=== PATIENT | female | born 1970 | race Caucasian/White ===

== ENCOUNTER 2022-04-22 11:29 | Emergency (ER) | payer SELFPAY ==
--- NOTE | ~2022-04-22 | CT_ITS ---
EXAMINATION: CT HEAD WITHOUT CONTRAST CLINICAL INFORMATION: Intractable headache. COMPARISON: None TECHNIQUE: Contiguous axial imaging was performed from the skull base to vertex without intravenous administration of contrast. This CT examination was performed using dose optimization techniques as appropriate, variously including the following: *Automated exposure control *Adjustment of mA and/or kV according to patient size (this includes techniques or standardized protocols for targeted exams where dose is matched to indication/reason for exam; i.e. extremities or head) *Use of iterative reconstruction technique DLP: 599 mGy-cm FINDINGS: There is no evidence of acute intracranial hemorrhage or edematous territorial infarction. There is no abnormal attenuation within the brain parenchyma. Loera-white matter differentiation is preserved. The ventricles are normal in size and configuration. No evidence for obstructive hydrocephalus. No abnormal mass effect or midline shift. No extra-axial fluid collections. No acute soft tissue or osseous abnormalities. The mastoid air cells and paranasal sinuses are clear. CT/CT head/brain wo IV con IMPRESSION: No evidence of acute intracranial hemorrhage or edematous territorial infarction.
[2022-04-22 12:31] VITALS: BP 175/89; PULSE 90; RESP 16; TEMP 36.6; O2SAT 97; BMI 31.1
[2022-04-22 15:41] VITALS: BP 175/90; PULSE 84; RESP 16; TEMP 36.6; O2SAT 98
[2022-04-22] MEDS: diazePAM 2 MG TABLET PO (15:58)
--- NOTE | 2022-04-22 16:05 | ED_ITS ---
HPI - Headache General Chief Complaint: Headache Stated Complaint: pain back of head down into neck Time Seen by Provider: 04/22/22 15:14 Source: patient Mode of arrival: ambulatory Limitations: language barrier ( Urdu-speaking medical charge entry specialist utilized) History of Present Illness HPI Narrative: patient presents emergency department for evaluation of a headache with neck pain. Onset 2 days ago. Pain has been constant. Pain is to the left posterior head pain to the lateral is well. Is described as aching/ tightness. It is aggravated by movement of the head and neck, reporting a pulling sensation wo rsening of pain with movement as well as palpation. Denies alleviating factors. States she was seen at [facility] yesterday given a prescription for naproxen and cyclobenzaprine without any relief. Denies any migraine or headache history. Denies dizziness, lightheadedness, photophobia, phonophobia, vision changes, chest pain, palpitations, shortness of breath, difficulty breathing, numbness or tingling of the extremities. Related Data Previous Rx's Medication Instructions Recorded diazepam 2 mg tablet 2 mg PO BEDTIME PRN muscle spasm 04/22/22 #5 tabs Allergies Allergy/AdvReac Type Severity Reaction Status Date / Time No Known Allergies Allergy Verified 04/22/22 12:31 Review of Systems Review of Systems: Constitutional: No weight loss. No fever. No chills. No weakness. No fatigue. ENT: No sore throat. No rhinorrhea. No nasal congestion. No sore throat. No difficulty swallowing. Skin: No rash. No itching. Cardiovascular: No chest pain. No chest pressure. No palpitations. Respiratory: No shortness of breath. No cough. No sputum production. Gastrointestinal: No anorexia. No nausea. No vomiting. No diarrhea. No abdominal pain. Genitourinary: No burning micturition. No urinary frequency. No incontinence. Neurologic: positive headache. No dizziness. No pre-syncope/ syncope. No unilateral weakness. No ataxia. No numbness. No tingling. No change in bowel or bladder control. Musculoskeletal: Positive neck pain. No back pain. No joint pain. No stiffness. Hematologic: No bleeding. No bruising. Lymphatics: No enlarged lymph nodes. Psychiatric:No depression. No anxiety. Endocrine: No polyuria. No polydipsia. Yes all other systems are reviewed and are negative PMFSH Past Medical History Attestation statement: The following information was validated with the patient. Source: old records reviewed Social History Social History Advance Directives: No Advance Directives Information Provided: No Physical Exam Vital Signs: Vital Signs: Last Vital Signs Temp 97.8 F 04/22/22 15:41 Pulse 84 04/22/22 15:41 Resp 16 04/22/22 15:41 BP 175/90 H 04/22/22 15:41 Pulse Ox 98 04/22/22 15:41 O2 Del Method 04/22/22 15:41 BMI result Body Mass Index 31.1 Appearance: Alert.?Oriented to person, place and time. No acute distress.?Normal affect. Eyes: Pupils equal, round and reactive to light.? EOMI. No nystagmus. ENT: Pharynx normal.?? TM normal bilaterally Neck: Normal inspection.? Neck supple.? no midline cervical spine tenderness, step-offs, deformities. Palpable tenderness along the trapezius/ cervical paraspinal muscles.? No meningismus CVS: Heart sounds normal. Normal heart rate and rhythm.? Pulses normal.?? Respiratory: No respiratory distress.? Lung sounds clear to auscultation bilaterally?? Abdomen: Soft and non-tender. ? Skin: Skin warm and dry.? Normal skin color.? Extremities: No lower extremity edema.? Neuro: Moves all extremities spontaneously. Sensation intact bilaterally. CN II- XII intact. No focal neuro deficits. Ambulates with normal steady gait. Course Course Course Narrative: patient is a 51-year-old female with no significant past medical history presenting to emergency department for new onset of intractable headache over the past 2 days. No focal neurological findings. She appears uncomfortable, vital signs are stable. Afebrile. No meningismus. Pain particularly with movement of the head and neck and tenderness along palpation of the muscles, rico pect cervical strain /tension headache to be the most likely cause for her pain. However patient expressing significant concern for possible intracranial abnormality, Given age and new onset of headache will obtain CT of the head to exclude intracranial abnormality. Will trial diazepam orally for headache at this time. Reevaluation(s) Reevaluation #1: CT scan reveals no acute intracranial findings. Patient was improvement in symptoms after receiving Valium. Discussed plan of care for discharge home. Rest, ice /heat, gentle stretching exercises of neck. Advised not to use cyclobenzaprine, she is going to be given a short prescription for diazepam. Advised follow-up with primary care provider. Reviewed worrisome signs and symptoms return back to emergency department for. All questions were answered, patient is discharged home in stable condition. Ambulatory with steady gait. No neurological deficits MDM - Headache Medical Records Attestation: I reviewed the patient's medical records. Imaging Data CT scan - head: Radiologist's impression: CT/CT head/brain wo IV con IMPRESSION: No evidence of acute intracranial hemorrhage or edematous territorial infarction. Discharge Plan Discharge Clinical Impression: Cervical muscle strain, Tension headache Patient Disposition: Home, Self-Care Instructions: Cervical Strain (ED), Acute Headache (ED) Additional Instructions: Be sure to rest, use ice/ heat for 10-15 minute 3-4 times daily, gentle stretching of the neck. Continue to use naproxen as prescribed. Stop the use of cyclobenzaprine as he stated this is not helping. You have been given a prescription for diazepam, this medication may make you drowsy, you should only take this when you will be at home. Follow-up with primary care provider. Return to the emergency department any new or worsening symptoms or concerns. Prescriptions: New diazepam 2 mg tablet 2 mg PO BEDTIME PRN (Reason: muscle spasm) Qty: 5 0RF Interventions: ED Discharge Assessment Last Done: 04/22/22 17:35 Discharge Date/Time: 04/22/22 17:36 Print Language: Urdu
--- NOTE | 2022-04-22 16:14 | PC.NURSE ---
SITE LEAD made aware of patients elevated BP
== END 2022-04-22 17:36 | disposition home or self-care (01) ==
PROVIDERS: Emergency Provider Internal Medicine
DX: G44.209 Tension-type headache, unspecified, not intractable (principal); S16.1XXA Strain of muscle, fascia and tendon at neck level, initial encounter; X58.XXXA Exposure to other specified factors, initial encounter; Y93.9 Activity, unspecified; Y92.9 Unspecified place or not applicable; Y99.9 Unspecified external cause status
CPT/HCPCS: 70450; 99283; 99284

== ENCOUNTER 2022-12-21 08:23 | Outpatient (REF) | payer MEDICAID, SELFPAY ==
--- NOTE | ~2022-12-21 | MM_ITS ---
EXAMINATION: MM SCREENING DIGITAL BREAST TOMOSYNTHESIS, BILATERAL CLINICAL INFORMATION: Screening. Asymptomatic. The lifetime risk of breast cancer based on the Tyrer-Cuzick Model is 6.3%. COMPARISON: Mammography: None available. TECHNIQUE: Digital breast tomosynthesis is performed in both the craniocaudal and mediolateral oblique views along with computer-aided detection (CAD). Synthesized 2D images are generated from the tomosynthesis. FINDINGS: The breasts are heterogeneously dense, which may obscure small masses (ACR BI-RADS breast composition Category c). Within the medial aspect of the right breast, approximately 4 cm from the nipple, there is a grouping of calcifications for which further evaluation with spot magnification views in craniocaudal and mediolateral oblique projections is recommended. There are some bilateral circumscribed densities present for which spot compression views are recommended and if the lesions are persistent then ultrasound could be performed. These likely represent cysts. MM/MM tomosynthesis screening BI IMPRESSION: 1. Indeterminate grouping of calcifications about the medial aspect of the right breast. 2. Multiple bilateral circumscribed densities for further evaluation as described above. ASSESSMENT: BI-RADS 0: Incomplete - Need additional imaging evaluation. RECOMMENDATION: 1. Additional views of the bilateral breasts. 2. Targeted ultrasound if warranted after review of the additional views. 3. Radiology department staff will contact the patient for additional imaging.
== END 2022-12-21 08:24 | disposition home or self-care (01) ==
LOC: HO.MAMMO 08:23
PROVIDERS: PCP Family Medicine; Visit Provider Family Medicine
DX: Z12.31 Encounter for screening mammogram for malignant neoplasm of breast (principal)
CPT/HCPCS: 77063; 77067

== ENCOUNTER → 2022-12-27 21:45 | Outpatient (REF) | payer MEDICAID, SELFPAY | LOC: HO.SL 21:45 | PROVIDERS: PCP Family Medicine; Visit Provider Family Medicine | DX: G47.30 Sleep apnea, unspecified (principal); R06.83 Snoring | CPT/HCPCS: 95810 ==

== ENCOUNTER 2023-01-15 12:42 | Outpatient (REF) | payer MEDICAID, SELFPAY ==
--- NOTE | ~2023-01-15 | MM_ITS ---
EXAMINATION: MM DIAGNOSTIC DIGITAL BREAST TOMOSYNTHESIS, BILATERAL US DIAGNOSTIC ULTRASOUND BREAST, BILATERAL CLINICAL INFORMATION: Recall from new baseline screening for bilateral benign-appearing nodularity and central right breast calcifications. COMPARISON: Mammography: 12/21/2022 (BI-RADS 0, new baseline). TECHNIQUE: Digital breast tomosynthesis is performed. 2D images are generated from the tomosynthesis. The following views are obtained: Magnification right CC, magnification right ML, bilateral spot CC, bilateral spot MLO. Ultrasound of both breasts is performed interrogating from multiple quadrants using grayscale imaging and color Doppler without and with harmonics. FINDINGS: The breasts are heterogeneously dense, which may obscure small masses (ACR BI-RADS breast composition Category c). The additional spot views demonstrate scattered bilateral smooth benign-appearing nodularity suggesting fibrocystic changes. There is no architectural abnormality or significant dominant mass. The magnification views right breast demonstrate loosely grouped calcifications central breast mid depth around 10 in number of unknown chronicity. Ultrasound bilateral breast ultrasound demonstrates scattered similar appearing small simple anechoic cysts. No solid mass or architectural abnormality. Results are discussed with the patient at time of visit, using an glove machine operator. The bilateral fibrocystic changes are benign. Management options for the right breast calcifications were discussed. Patient is in favor of stereotactic sampling. Results and recommendation called to emergency medical technician basic (Leila) for Dr. Kinney on 01/15/2023. MM/MM added views BI IMPRESSION: Right: -Loosely grouped central right breast calcifications, unknown chronicity. -Benign fibrocystic changes, similar to contralateral left side. Left: -Benign fibrocystic changes, similar to contralateral right side. ASSESSMENT: BI-RADS 4: Suspicious (subcategory 4A: Low suspicion for malignancy) RECOMMENDATION: Stereotactic sampling right breast calcifications. This patient's information was entered into a reminder system with a target due date for their next mammogram.
--- NOTE | ~2023-01-15 | US_ITS ---
EXAMINATION: MM DIAGNOSTIC DIGITAL BREAST TOMOSYNTHESIS, BILATERAL US DIAGNOSTIC ULTRASOUND BREAST, BILATERAL CLINICAL INFORMATION: Recall from new baseline screening for bilateral benign-appearing nodularity and central right breast calcifications. COMPARISON: Mammography: 12/21/2022 (BI-RADS 0, new baseline). TECHNIQUE: Digital breast tomosynthesis is performed. 2D images are generated from the tomosynthesis. The following views are obtained: Magnification right CC, magnification right ML, bilateral spot CC, bilateral spot MLO. Ultrasound of both breasts is performed interrogating from multiple quadrants using grayscale imaging and color Doppler without and with harmonics. FINDINGS: The breasts are heterogeneously dense, which may obscure small masses (ACR BI-RADS breast composition Category c). The additional spot views demonstrate scattered bilateral smooth benign-appearing nodularity suggesting fibrocystic changes. There is no architectural abnormality or significant dominant mass. The magnification views right breast demonstrate loosely grouped calcifications central breast mid depth around 10 in number of unknown chronicity. Ultrasound bilateral breast ultrasound demonstrates scattered similar appearing small simple anechoic cysts. No solid mass or architectural abnormality. Results are discussed with the patient at time of visit, using an american history teacher. The bilateral fibrocystic changes are benign. Management options for the right breast calcifications were discussed. Patient is in favor of stereotactic sampling. Results and recommendation called to medical record librarian (Leila) for Dr. Kinney on 01/15/2023. US/US breast LT limited IMPRESSION: Right: -Loosely grouped central right breast calcifications, unknown chronicity. -Benign fibrocystic changes, similar to contralateral left side. Left: -Benign fibrocystic changes, similar to contralateral right side. ASSESSMENT: BI-RADS 4: Suspicious (subcategory 4A: Low suspicion for malignancy) RECOMMENDATION: Stereotactic sampling right breast calcifications. This patient's information was entered into a reminder system with a target due date for their next mammogram.
--- NOTE | ~2023-01-15 | US_ITS ---
EXAMINATION: MM DIAGNOSTIC DIGITAL BREAST TOMOSYNTHESIS, BILATERAL US DIAGNOSTIC ULTRASOUND BREAST, BILATERAL CLINICAL INFORMATION: Recall from new baseline screening for bilateral benign-appearing nodularity and central right breast calcifications. COMPARISON: Mammography: 12/21/2022 (BI-RADS 0, new baseline). TECHNIQUE: Digital breast tomosynthesis is performed. 2D images are generated from the tomosynthesis. The following views are obtained: Magnification right CC, magnification right ML, bilateral spot CC, bilateral spot MLO. Ultrasound of both breasts is performed interrogating from multiple quadrants using grayscale imaging and color Doppler without and with harmonics. FINDINGS: The breasts are heterogeneously dense, which may obscure small masses (ACR BI-RADS breast composition Category c). The additional spot views demonstrate scattered bilateral smooth benign-appearing nodularity suggesting fibrocystic changes. There is no architectural abnormality or significant dominant mass. The magnification views right breast demonstrate loosely grouped calcifications central breast mid depth around 10 in number of unknown chronicity. Ultrasound bilateral breast ultrasound demonstrates scattered similar appearing small simple anechoic cysts. No solid mass or architectural abnormality. Results are discussed with the patient at time of visit, using an media center assistant. The bilateral fibrocystic changes are benign. Management options for the right breast calcifications were discussed. Patient is in favor of stereotactic sampling. Results and recommendation called to medical assistant float (Leila) for Dr. Kinney on 01/15/2023. US/US breast RT limited IMPRESSION: Right: -Loosely grouped central right breast calcifications, unknown chronicity. -Benign fibrocystic changes, similar to contralateral left side. Left: -Benign fibrocystic changes, similar to contralateral right side. ASSESSMENT: BI-RADS 4: Suspicious (subcategory 4A: Low suspicion for malignancy) RECOMMENDATION: Stereotactic sampling right breast calcifications. This patient's information was entered into a reminder system with a target due date for their next mammogram.
== END 2023-01-15 12:43 | disposition home or self-care (01) ==
LOC: HO.MAMMO 12:42
PROVIDERS: PCP Family Medicine; Visit Provider Family Medicine
DX: R92.1 Mammographic calcification found on diagnostic imaging of breast (principal); R92.2 Inconclusive mammogram
CPT/HCPCS: 76642; 77066

== ENCOUNTER 2023-01-19 08:39 | Outpatient (REF) | payer MEDICAID, SELFPAY ==
--- NOTE | ~2023-01-19 | MM_ITS ---
EXAMINATION: STEREOTACTIC TOMOSYNTHESIS-GUIDED VACUUM-ASSISTED BREAST BIOPSY, RIGHT SPECIMEN RADIOGRAPH, RIGHT POST PROCEDURE DIGITAL MAMMOGRAM, RIGHT CLINICAL INFORMATION: Calcifications central right breast, unknown chronicity. COMPARISON: Mammography 01/15/2023, 12/21/2022 (new baseline). TECHNIQUE/PROCEDURE: Informed consent was obtained from the patient after discussion of the benefits, risks, and alternatives to biopsy today. Patient appeared to understand. Gave opportunity for questions. Patient signed consent form. Hospital provided doctor of radiology assisted for the consent and throughout the procedure. BIOPSY TABLE: [employer] Prone Biopsy System. LESION: Loosely grouped punctate calcifications mid central right breast, just medial to midline. LOCAL ANESTHESIA: 10 mL carbonated 1% lidocaine; 10 mL 1% lidocaine with epinephrine. DERMATOTOMY: Single skin magdalena dermatotomy performed. NEEDLE: [employer] 9-gauge vacuum assisted core biopsy device. APPROACH: Medial lateral. TARGETING: Combination of digital breast tomosynthesis and stereotactic digital mammography used for targeting. CORES: 8. CLIP: [employer] T-shaped marker. SPECIMEN RADIOGRAPH: Specimen radiograph is taken in separate room using digital mammography. The index calcifications are in the excised cores. There are at least 5 calcifications in the cores. POST PROCEDURE UNILATERAL DIGITAL MAMMOGRAM: The post biopsy mammogram is performed in separate room using separate digital mammography equipment from the biopsy procedure. CC and ML views are obtained. The breasts are heterogeneously dense, which may obscure small masses (breast composition category: c). The clip marker is in position. The calcifications are markedly decreased at the biopsy site and no longer clearly visualized. No gross hematoma. The patient tolerated the procedure well. No immediate complications. Home instructions reviewed with the patient. Final pathology results are pending. MM/MM stereotactic biopsy RT IMPRESSION: 1. Digital tomosynthesis-guided core biopsy right breast with clip placement. 2. Specimen radiograph taken and post procedure mammogram. There is satisfactory positioning of the biopsy clip. 3. Final pathology results pending. An addendum report will be issued.
[2023-01-19] MEDS: Lidocaine HCl 1 % 20 ML VIAL 9 ML SUBCUT (11:05)
[2023-01-19] MEDS: Sodium Bicarbonate 8.4% 50 MEQ/50 ML VIAL SUBCUT (11:05)
[2023-01-19] MEDS: Lidocaine HCl 1%/Epi 1:100,000 10 ML VIAL SUBCUT (11:07)
== END 2023-01-19 08:40 | disposition home or self-care (01) ==
LOC: HO.MAMMO 08:39
PROVIDERS: PCP Family Medicine; Visit Provider Surgery
DX: R92.0 Mammographic microcalcification found on diagnostic imaging of breast (principal)
CPT/HCPCS: 19081; 88305; 99202; A4648

== ENCOUNTER → 2023-01-26 08:06 | Outpatient (BNVA) | payer MEDICAID, SELFPAY | PROVIDERS: PCP Family Medicine; Visit Provider Surgery | DX: R92.0 Mammographic microcalcification found on diagnostic imaging of breast (principal) | CPT/HCPCS: 99212 ==

== ENCOUNTER 2023-12-27 08:16 | Outpatient (REF) | payer MEDICAID, SELFPAY ==
--- NOTE | ~2023-12-27 | MM_ITS ---
EXAMINATION: MM SCREENING DIGITAL BREAST TOMOSYNTHESIS, BILATERAL CLINICAL INFORMATION: Screening. Asymptomatic. COMPARISON: Mammography: 12/21/2022. 01/15/2023 diagnostic. 01/19/2023 benign stereotactic right breast biopsy. 01/15/2023 bilateral breast ultrasound (simple cysts). TECHNIQUE: Digital breast tomosynthesis is performed in both the craniocaudal and mediolateral oblique views along with computer-aided detection (CAD). Synthesized 2D images are generated from the tomosynthesis. FINDINGS: The breasts are heterogeneously dense, which may obscure small masses (ACR BI-RADS breast composition Category c). Post benign biopsy clip in the approximate 3:00 axis right breast middle one third. Isodense small oval masses in both breasts, known to represent simple cysts on prior ultrasounds. No recurrent or suspicious calcifications present. No developing masses or regions of architectural distortion in either breast. No suspicious skin or axillary abnormality. MM/MM tomosynthesis screening BI IMPRESSION: No mammographic evidence of malignancy. Stable benign findings. ASSESSMENT: BI-RADS BI-RADS 2 - Benign Findings RECOMMENDATION: Routine annual mammography screening. 1 year F/U This examination should not preclude the clinical evaluation of a suspicious palpable abnormality. This patient's information was entered into a reminder system with a target due date for their next mammogram.
== END 2023-12-27 08:17 | disposition home or self-care (01) ==
LOC: HO.MAMMO 08:16
PROVIDERS: PCP Family Medicine; Visit Provider Family Medicine
DX: Z12.31 Encounter for screening mammogram for malignant neoplasm of breast (principal)
CPT/HCPCS: 77063; 77067

== ENCOUNTER → 2023-12-27 08:30 | Outpatient (BNV) | payer MEDICAID, SELFPAY | PROVIDERS: PCP Family Medicine; Visit Provider Radiology Diagnostic Radiology | DX: Z12.31 Encounter for screening mammogram for malignant neoplasm of breast (principal) | CPT/HCPCS: 77063; 77067 ==

== ENCOUNTER 2024-01-30 08:42 | Outpatient (REF) | payer MEDICAID, SELFPAY ==
[2024-01-30 14:12] LABS: MANUAL DIFF FLAG NO
[2024-01-30 14:17] LABS: Basophils Absolute Auto 0.1 X10*3/uL (0.0-0.2); Basophils Percent Auto 0.8 % (0-2); Eosinophils Absolute Auto 0.2 X10*3/uL (0.0-0.4); Eosinophils Percent Auto 2.4 % (0-4); Hematocrit 36.8 % (37.0-47.0); Hemoglobin 11.6 g/dl (12.0-16.0); Imm Gran Abs Auto 0.03 X10*3/uL (0.00-0.03); Imm Gran Pct Auto 0.5 % (0.0-0.4); Lymphocytes Percent Auto 31.1 % (20-40); Mean Corpuscular HGB Conc 31.5 g/dl (31.0-35.0); Mean Corpuscular Volume 88.7 fL (80.0-98.0); Monocytes Absolute Auto 0.7 X10*3/uL (0.1-1.2); Monocytes Percent Auto 10.7 % (2-11); Neutrophils Absolute Auto 3.5 x10*3/uL (2.0-8.3); Neutrophils Percent Auto 54.5 % (45-73); Platelet Count 432 X10*3/uL (160-400); Red Blood Count 4.15 X10*6/uL (4.20-5.50); Red Cell Distribution Width 17.2 % (11.0-16.0); White Blood Count 6.3 X10*3/uL (4.8-10.8)
[2024-01-30 14:31] LABS: Rheumatoid Factor < 13.0 IU/mL (<15.0)
[2024-01-30 14:38] LABS: Alanine Aminotransferase 10 U/L (0-31); Albumin Level 3.9 g/dL (3.5-5.0); Alkaline Phosphatase 95 U/L (39-117); Anion Gap 12 (12-20); Aspartate Amino Transferase 13 U/L (5-31); Bilirubin Total 0.2 mg/dL (0.0-1.0); Blood Urea Nitrogen 11 mg/dL (9-16); Calcium 9.4 mg/dL (8.4-10.2); Carbon Dioxide 28 mmol/L (22-29); Chloride 106 mmol/L (96-108); Cholesterol 240 mg/dL (<200); Estimated Glomerular Filt Rate > 60; Glucose Random 85 mg/dL (60-115); HDL Cholesterol 55 mg/dL (>40); LDL Cholesterol Calculated 162 mg/dL (<100); Magnesium 1.9 mg/dL (1.6-2.6); Potassium 4.1 mmol/L (3.3-5.1); Sodium 142 mmol/L (135-145); Total Protein 7.6 g/dL (6.5-8.0); Triglycerides 115 mg/dL (<150)
[2024-01-30 14:52] LABS: Erythrocyte Sedimentation Rate 36 MM/HR (0-20)
[2024-01-30 14:54] LABS: TSH reflex Free T4 2.44 uIU/mL (0.32-4.0)
[2024-01-30 15:00] LABS: Folate 9.6 ng/mL (> or = 4.0); Vitamin B12 348 pg/mL (200-900)
[2024-02-01 15:28] LABS: Anti Nuclear Antibody Screen NEGATIVE (NEGATIVE)
[2024-02-01 15:48] LABS: Cyclic Citrullinated Peptide <16 UNITS
== END 2024-01-30 08:43 | disposition home or self-care (01) ==
LOC: HO.CHCLDS 08:42
PROVIDERS: Visit Provider Family Medicine
DX: R20.0 Anesthesia of skin (principal); R20.2 Paresthesia of skin; M25.50 Pain in unspecified joint; N93.9 Abnormal uterine and vaginal bleeding, unspecified; R22.1 Localized swelling, mass and lump, neck
CPT/HCPCS: 36415; 80053; 80061; 82607; 82746; 83735; 84443; 85025; 85652; 86038; 86200; 86431

== ENCOUNTER 2024-02-01 12:39 | Outpatient (REF) | payer MEDICAID, SELFPAY ==
--- NOTE | ~2024-02-01 | US_ITS ---
EXAMINATION: US PELVIS CLINICAL INFORMATION: Abnormal uterine bleeding; the last menstrual. Is not provided. COMPARISON: None available. TECHNIQUE: Ultrasound of the pelvis is performed using both transabdominal and transvaginal transducers along with Doppler. Transvaginal imaging is performed due to inadequate visualization transabdominally. FINDINGS: The uterus is of normal size and echogenicity, measuring 9.6 x 4.8 x 5.7 cm. The uterus is anteverted and anteflexed. A regular homogeneous endometrium is identified measuring 0.4 cm. FIBROIDS: There are 2 fibroids seen. 1. Location: Rightward isthmus, myometrial. Size: 4.5 x 3.9 x 4.9 cm. Fibroid characteristics: Heterogeneously hypoechoic. 2. Location: Anterior body, subserosal. Size: 0.9 x 0.7 x 0.8 cm. Fibroid characteristics: Heterogeneous echotexture, with a central calcification. Both ovaries are of normal size and echogenicity. The right ovary measures 2.0 x 0.9 x 2.0 cm for a volume of 2.1 mL. The left ovary measures 2.4 x 1.0 x 2.0 cm for a volume of 2.5 mL. There is no pelvic free fluid. No adnexal mass is seen. US/US pelvic and transvaginal IMPRESSION: There are uterine fibroids, as detailed. The examination is otherwise unremarkable.
== END 2024-02-01 12:40 | disposition home or self-care (01) ==
LOC: HO.US 12:39
PROVIDERS: PCP Family Medicine; Visit Provider Family Medicine
DX: N93.9 Abnormal uterine and vaginal bleeding, unspecified (principal)
CPT/HCPCS: 76830; 76856

== ENCOUNTER 2024-04-09 15:22 | Outpatient (REF) | payer MEDICAID, SELFPAY ==
[2024-04-09 17:46] LABS: Appearance Urine Cloudy; Color Urine Yellow; Glucose Urine UA Negative (Negative); Leukocyte Esterase Urine Small (1+) (Negative); Nitrite Urine Negative (Negative); PH 6.5 (5.0-9.0); UMIC TRIGGER UACC YES; Urine Blood Negative (Negative); Urine Ketones Trace mg/dL (Negative); Urine Protein Trace mg/dL (Neg-Trace)
[2024-04-09 18:02] LABS: Bacteria Urine Trace (None Seen); Calcium Oxalate Crystals Urine Present; Hyaline Casts Urine 0-2 /LPF (0-2); RBC Urine 0-2 /HPF (0-2); UACC Culture Trigger YES; WBC Urine 0-5 /HPF (0-5)
== END 2024-04-09 15:23 | disposition home or self-care (01) ==
LOC: HO.CHCLNP 15:22
PROVIDERS: Visit Provider Family Medicine
DX: R30.0 Dysuria (principal)
CPT/HCPCS: 81001; 87086

== ENCOUNTER 2024-12-08 09:11 | Outpatient (REF) | payer MEDICAID, SELFPAY ==
--- OUTSIDE RECORDS SUMMARY | 2024-12-08 09:55 | XMS_ITS | Encounter Summary ---
Author Organization [employer] Address [address] [place] [address] [address] [place] [address] Care Team Providers Care Real Estate Investment Analyst Name Role Phone Liliana Kinney MD Primary Care Provider [phone] Encounter Details Date Type Department Care Team ([facility] Contact Info) Description 02/15/2023 Orders Only [facility] [address] [place], [place] [phone] ProviderBuck MD Social History Tobacco Use Types Packs/Day Years Used Date Smoking Tobacco: Never Passive Smoke Exposure: Never Smokeless Tobacco: Never Alcohol Use Standard Drinks/Week Comments Never 0 (1 standard drink = 0.6 oz pur e alcohol) Depression Answer Date Recorded Patient Health Questionnaire-9 Score 3 11/10/2022 Depression Answer Date Recorded Patient Health Questionnaire-2 Score 2 11/10/2022 Comments Unknown Sex and Gender Information Value Date Recorded Sex Assigned at Female 11/10/2022 1:04 PM EDT Legal Sex Female 12:06 PM EDT Gender Identity Female 11/10/2022 1:04 PM EDT Sexual Orientation Straight 11/10/2022 1: 04 PM EDT COVID-19 Exposure Response Date Recorded In the last 10 days, have yo u been in contact with someone who was confirmed or suspected to have Coronavirus/COVID-19? No / Unsure 01/16/2023 3:33 PM EDT documented as of this encounter Plan of Treatment Upcoming Encounters Date Type Department Care Team ([facility] Contact Info) Description 12/15/2024 3:15 PM EDT Office Visit [facility] [address] [place] [address] Liliana Kinney MD [address] [place], [place] [phone] documented as of this encounter Procedures Procedure Name Priority Date/Time Associated Diagnosis Comments EXTERNAL BREAST BIOPSY Routine 01/19/2023 documented in this encounter Results * External Breast Biopsy (01/19/2023) Anatomical Region Laterality Modality Breast N/A Mammography Narrative 01/19/2023 Benign stereotactic biopsy of right breast with a 6 month follow up recommendation us Historical Provider MD SEGURA BI PROCEDURES Edited Result - Final documented in this encounter Visit Diagnoses Not on filedocumented in this encounter Additional Health Concerns Assessment Noted Time PHQ-9 Depression Total Score: 3 11/11/19 23 1:39 PM EDT documented as of this encounter Care Teams Real Estate Investment Analyst Relationship Specialty Start Date End Date Liliana Kinney MD [address] [place] [address] PCP - General Family Medicine 11/10/22 documented as of this encounter
--- OUTSIDE RECORDS SUMMARY | 2024-12-08 09:55 | XMS_ITS | Encounter Summary ---
Author Organization [facility] [employer] Address [address] [place] [address] [address] [place] [address] Care Team Providers Care Oil Burner Technician Name Role Phone Liliana Kinney MD Primary Care Provider [phone] Reason for Visit * Reason Comments Chart update mammo Encounter Details Date Type Department Care Team (Late Contact Info) Description 01/15/2023 Abstract [facility] [address], [place] [phone] Liliana Kinney MD [address] [place] [address] Breast screening (Primary Dx) Social History Tobacco Use Types Packs/Day Years [...] Upcoming Encounters Date Type Department Care Team (Late Contact Info) Description 12/15/2024 3:15 PM EDT Office Visit [facility] [address] [place] [address] Liliana Kinney MD [address] [place] [address] documented as of this encounter Visit Diagnoses Diagnosis Breast screening- Primary Breast screening, unspecified documented in this encounter Additional Health Concerns Assessment Noted Time PHQ-9 Depression Total Score: 3 11/11/19 23 1:39 PM EDT documented as of this encounter Care Teams Oil Burner Technician Relationship Specialty Start Date End Date Liliana Kinney MD [address] [place] [id number] PCP - General Family Medicine 11/10/22 documented as of this encounter
--- OUTSIDE RECORDS SUMMARY | 2024-12-08 09:55 | XMS_ITS | Clinical Summary ---
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 1 kit 3 Active omega-3 acid ethyl esters (Lovaza) 1 g capsule Take 1 g by mouth 2 times daily. Active albuterol 108 (90 Base) MCG/ACT inhalerIndication s:Chronic cough Inhale 2 puffs every 4 (four) hours if needed for wheezing. 18 g 1 3 Active cetirizine (ZyrTEC) 10 MG tablet Take 1 tablet (10 mg) by mouth in the morning. 30 tablet 3 Active magnesium 30 MG tablet Take 1 tablet (30 mg) by mouth 2 times daily. 180 tablet 1 4 Active ibuprofen 800 MG tablet 4 Active Ketotifen Fumarate 0.035 % solution Administer 1 drop into affected eye(s) 2 times daily. 10 mL 1 4 Active Flibanserin (Addyi) 100 MG tablet Take 1 tablet (100 mg) by mouth Once per day. 90 tablet 1 4 Active amLODIPine (Norvasc) 10 MG tabletIndications :Primary hypertension Take 1 tablet (10 mg) by mouth in the morning. 90 tablet 1 4 Active rosuvastatin (Crestor) 40 MG tablet Take 1 tablet (40 mg) by mouth Once per day. 90 tablet 1 4 Active Active Problems Problem Noted Date Diagnosed Date Hypoactive sexual desire disorder 07/09/2024 Assessment & Plan (07/09/2024 4:43 PM EST): Prescribing Addyi for Sx, follow up in 6 months. Relevant Medications Flibanserin (Addyi) 100 MG tablet Itchy, watery, and red eye 04/09/2024 Assessment & Plan (04/09/2024 2:36 PM EDT): DC Pataday and begin Ketotifen Fumarate for Sx. Referral to Ophthalmology for further evaluation. Relevant Medications Ketotifen Fumarate 0.035% solution Dysuria 04/09/2024 Assessment & Plan (04/09/2024 2:37 PM EDT): Ordering urinalysis for further evaluation. Prescribing Bactrim for Sx. Relevant Medications Sulfamethoxazole-Trimethoprim (Bactrim DS) 800-160 mg tablet Abnormal uterine bleeding 01/30/2024 Assessment & Plan (01/30/2024 9:47 AM EDT): Ordering US of Pelvis for further investigation of symptoms. Advised treatment options to alleviate symptoms. Reviewed and updated immunization records. Relevant Orders Zoster Vaccine - Recombinant Adjuvanted (Shingrix) 50 MCG / 0.5 ML Mass of right side of neck 01/30/2024 Assessment & Plan (01/30/2024 9:48 AM EDT): Ordering US of the Neck to further investigate symptoms. Neck pain 01/30/2024 Assessment & Plan (01/30/2024 9:45 AM EDT): Prescribing Flexeril for neck spasms. F/u in 6 months. Relevant Medications Cyclobenzaprine (Flexeril) 5 MG Tablet Left foot pain 10/24/2023 Assessment & Plan (10/29/2023 9:10 AM EDT): Ddx plantar fasciitis.Will rx night splints, recommended inserts for plantar fasciitis. Referred to podiatry Chronic cough 04/10/2023 Assessment & Plan (04/10/2023 4:29 PM EDT): Pt concern of asthma, will send for PFTs and provide trial of CARLOS Cramps, muscle, general 04/10/2023 Assessment & Plan (04/10/2023 4:29 PM EDT): Unknown etiology, will monitor Pruritus 04/10/2023 Assessment & Plan (04/10/2023 4:29 PM EDT): Unknown etiology, no rash appreciated. If persistent will send the following labs: CBC, CMP, CRP, ESR, TSH, iron, ferritin, zinc, Vit D, FOBT and CXR. Watery eyes 04/10/2023 Assessment & Plan (04/10/2023 4:08 PM EDT): Referred to Ophtalmologist Perimenopausal vasomotor symptoms 04/10/2023 Colon cancer screening 12/21/2022 Assessment & Plan (04/10/2023 4:30 PM EDT): Sent cologuard Hypertriglyceridemia 12/05/2022 Assessment & Plan (07/09/2024 4:42 PM EST): Ordering lab work for further evaluation and discussed refills as needed. Relevant Medications Rosuvastatin (Crestor) 40 MG Tablet Assessment & Plan (12/21/2022 11:31 AM EDT): Will recheck levels. Assessment & Plan (12/05/2022 2:52 PM EDT): Will refer to nutrition. Pelvic pain 12/05/2022 Assessment & Plan (12/21/2022 11:32 AM EDT): Patient with chronic pelvic pain. Imaging indicated 1.3cm ovarian cyst, left sided and an enlarged uterus. 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 Assessment & Plan (12/05/2022 2:53 PM EDT): Chronic left sided pelvic pain reports in the last she was dx with ovarian cyst, will send pelvic US to [facility] Cervical cancer screening 12/05/2022 Hypertension 11/10/2022 Assessment & Plan (07/09/2024 4:43 PM EST): BP is controlled, continue on current medications. Discussed refills as needed. Pt declined vaccinations today. Follow up in 6 months. Assessment & Plan (10/25/2023 2:49 AM EDT): Controlled. Cont current regimen. Ordered labs and will F/U sooner if abnormal findings otherwise F/up in 6 months Labs: albumin, random urine w/ creatinine Assessment & Plan (04/10/2023 4:29 PM EDT): Controlled. Cont current regimen. F/up in 6 months Assessment & Plan (12/21/2022 11:30 AM EDT): Controlled. Continue current regimen. Assessment & Plan (12/05/2022 2:52 PM EDT): Controlled here, review home log more then 70% of the time uncontrolled. Cont current regimen, if not controlled then will add losartan to regimen. F/u in next schedule appt in 2 weeks Resolved Problems Problem Noted Date Diagnosed Date Resolved Date Acute intractable headache 11/10/2022 0 04/10/2023 Assessment & Plan (12/05/2022 2:52 PM EDT): F/u MRI results Sleep apnea 11/10/2022 04/10/2023 Immunizations Name Administration Dates Next Due Hep B, adult 07/05/2015,01/28/2015,12/30/2014 Tdap 11/25/2014 Zoster, Recombinant 04/08/2024,01/30/2024 Social History Tobacco Use Types Packs/Day Years Used Date Smoking Tobacco: Never Passive Smoke Exposure: Never Smokeless Tobacco: Never Tobacco Cessation:Counseling Given: Not Answered Alcohol Use Standard Drinks/Week Comments Never 0 (1 standard drink = 0.6 oz pur e alcohol) Depression Answer Date Recorded Patient Health Questionnaire-9 Score 4 01/30/2024 Patient Health Questionnaire-9 Score 4 01/30/2024 Last PHQ-9: Questionnaire Data Not on file 0 01/30/2024 Housing Stability Answer Date Recorded What is your housing situation today? I have navi lawrence 05/22/[address] you li ve. Do you have problems with any of the following? None of the above 05/22/2023 Food Insecurity Answer Date Recorded Within the past 12 months, y ou worried that your food would run out before you got money to buy more: Never True 05/22/2023 Within the past 12 months,th e food you bought just didn't last and you didn't have enough money to get more: Never True Transportation Answer Date Recorded In the past 12 months, has l ack of transportation kept you from medical appts, meetings, work or from getting things needed for daily living? No 05/22/2023 Utilities Answer Date Recorded In the past 12 months, has t he electric, gas, oil or water company threatened to shut off services in your home? No 05/22/2023 Depression Answer Date Recorded Patient Health Questionnaire-2 Score 2 01/30/2024 Comments No Sex and Gender Information Value Date Recorded Sex Assigned at Female 11/10/2022 1:04 PM EDT Legal Sex Female 12:06 PM EDT Gender Identity Female 11/10/2022 1:04 PM EDT Sexual Orientation Straight 11/10/2022 1: 04 PM EDT Last Filed Vital Signs Vital Sign Reading Time Taken Comments Blood Pressure 128/76 07/09/2024 4:17 PM EST Pulse 74 07/09/2024 4:17 PM EST Temperature 36.8 ??C (98.2 ??F) 07/09/2024 4:17 PM ES T Respiratory Rate 20 07/09/2024 4:17 PM EST Oxygen Saturation 98% 07/09/2024 4:17 PM EST Inhaled Oxygen Concentration - - Weight 76.9 kg (169 lb 9.6 oz) 07/09/2024 4:17 P M EST Height 156 cm (5' 1.42 ) 07/09/2024 4:17 PM EST Body Mass Index 31.61 07/09/2024 4:17 PM EST Plan of Treatment Upcoming Encounters Date Type Department Care Team (Late st Contact Info) Description 12/15/2024 3:15 PM EDT Office Visit [facility] [address] [place] [address] Liliana Kinney MD [address] [place] [address] Health Maintenance Due Date Last Done Comments CT Colonography 1971 Colonoscopy 1971 FIT 1971 FOBT 1970 Sigmoidoscopy 1970 Pneumococcal Vaccine: 50+ Years (1 of 1 - PCV) 10/17/2021 Mammogram 06/28/2024 12/27/2023, 01/04, 01/15/2023, Additional history exists SDOH Screening 10/15/2024 10/16/2023 DTaP/Tdap/Td Vaccines (2 - Td or Tdap) 11/25/2024 11/25/2014 Depression Screening 01/29/2025 01/30/2024, 01/30/20 24 Tobacco Screening 01/29/2025 01/30/2024 Influenza Vaccine (#1) 2025 Postp oned from 04/06/2024 (Patient Refused) Alcohol/Substance Use Screening 07/09/2025 07/09/2024 COVID-19 Vaccine ( season) 2025 07/21/2021, 11/29/2020, 11/01/2020 Postponed from 04/06/2024 (Patient Refused) Pap Smear 12/05/2025 12/05/2022 Colorectal Cancer Screening 04/20/2026 FIT DNA/Cologuard 04/20/2026 04/20/2023 Cervical Cancer Screening 12/06/2027 HPV/Cotest 12/06/2027 12/05/2022 Lipid Panel 01/29/2029 01/30/2024, 11/13/2022 RSV Patients and Patients Aged 60 years or older (1 - 1-dose 75+ series) 10/17/2046 Hepatitis B Vaccines Completed 07/05/2015, 01/28/2015, 12/30/2014 HIV Screening Completed 11/13/2022 Hepatitis C Screening Completed 11/13/2022 Zoster Vaccines Completed 04/08/2024, 01/30/2024 HIB Vaccines Aged Out No longer eligi ble based on patient's age to complete this topic HPV Vaccines Aged Out No longer eligi ble based on patient's age to complete this topic Hepatitis A Vaccines Aged Out No long er eligible based on patient's age to complete this topic IPV Vaccines Aged Out No longer eligi ble based on patient's age to complete this topic Meningococcal Vaccine Aged Out No naresh lemuel eligible based on patient's age to complete this topic RSV under 20 months Aged Out No longe r eligible based on patient's age to complete this topic Rotavirus Vaccines Aged Out No longer eligible based on patient's age to complete this topic Procedures Procedure Name Priority Date/Time Associated Diagnosis Comments LIPID PANEL, STANDARD Routine 01/30/2024 8:45 AM EDT Numbness and tingling BI MAMMOGRAM SCREENING TOMOSYNTHESIS BILATERAL Urgent 12/27/2023 8:42 AM EDT LAB COLOGUARD?? COLON CANCER SCREEN Routine 04/20/2023 3:27 PM EDT Colon cancer screening IMAGE-GUIDED PAP W/AGE BASED SCR,W/CT/NG/TRICH Routine 12/05/2022 4:35 PM EDT Cervical cancer screening HEPATITIS C AB W/REFL TO HCV RNA, QN, PCR Routine 11/13/2022 9:30 AM EDT Periodic health assessment, general screening, adult HIV 1/2 ANTIGEN/ANTIBODY, FOURTH GENERATION W/RFL Routine 11/13/2022 9:30 AM EDT Periodic health assessment, general screening, adult from Last 3 Months or Most Recently Relevant to Health Maintenance Results * (ABNORMAL) Lipid Panel, Standard (01/30/2024 8:45 AM EDT) Triglycerides 115 <150 mg/dL [facility] Comment:Desirable Triglyceri de: less than 150 mg/dLBorderline High Triglyceride 150-199 mg/dLHigh Triglyceride: 200-499 mg/dLVery High Triglyceride: greater than or equal to 5OO mg/dL Cholesterol 240(H) <200 mg/dL [facility] Comment:Desirable Cholestero l: less than 200 mg/dLBorderline High Cholesterol: 200-239 mg/dLHigh Cholesterol: greater than 239 mg/dL LDL Cholesterol Calculated 162(H) <100 mg/dL [facility] Comment:Desirable LDL: less than 100 mg/dLNear Optimal/Above Optimal LDL: 110- 129 mg/dLBorderline High LDL: 130-159 mg/dLHigh LDL: 160-189 mg/dLVery High LDL: greater than or equal to 190 mg/dL HDL Cholesterol 55 >40 mg/dL [facility] Comment:Desirable HDL: great er than 40 mg/dL Note: This HDL assay may give artificially low results in patients with liver disease. Blood Venous blood specimen / Unknown 01/30/2024 8:45 AM EDT 01/30/2024 2:10 PM EDT us Liliana Kinney MD LAB BLOOD ORDERABLES Final Re sult [facility] [address] [place] [address] [phone] * BI Mammogram Screening Tomosynthesis Bilateral (12/27/2023 8:42 AM EDT) Anatomical Region Laterality Modality Breast Bilateral Mammography 12/27/2023 8:42 AM EDT Narrative 12/27/2023 11:40 AM EDT ? [facility] ? [address] ?[place] [address] ? Mammography Report ? Signed ? Patient: Marin Calvin,Lexi ?MR#: [id number] ?? [id number] ? : 1970 ?Acct:[id number] ? Age/Sex: 53 / F ?ADM Date: 05/23/24 ? Loc: HO.MAMMO ? Attending Dr: Liliana Kinney MD ? Ordering Physician: Liliana Kinney MD ?Results: 2Beni ?? gn Findings ? Date of Service: 12/27/23 ?Follow Up: 1 Year From Orig ?? inal Mammogram ? Procedure(s): MM tomosynthesis screening BI ?? Accession Number(s): [id number] ? cc: Liliana Kinney MD ? EXAMINATION: ?? MM SCREENING DIGITAL BREAST TOMOSYNTHESIS, BILATERAL ? CLINICAL INFORMATION: ? Screening. Asymptomatic. ? COMPARISON: ?? Mammography: 12/21/2022. 01/15/2023 diagnostic. 01/19/2023 benign ?? stereotactic right breast biopsy. ?? 01/15/2023 bilateral breast ultrasound (simple cysts). ? TECHNIQUE: ?? Digital breast tomosynthesis is performed in both the craniocaudal and ?? mediolateral oblique views along with computer-aided detection (CAD). ?? Synthesized 2D images are generated from the tomosynthesis. ? FINDINGS: ?? The breasts are heterogeneously dense, which may obscure small masses ?? (ACR BI-RADS breast composition Category c). ? Post benign biopsy clip in the approximate 3:00 axis right breast ?? middle one third. ??Isodense small oval masses in both breasts, known to ?? represent simple cysts on prior ultrasounds. No recurrent or suspicious ?? calcifications present. No developing masses or regions of ?? architectural distortion in either breast. No suspicious skin or ?? axillary abnormality. ? MM/MM tomosynthesis screening BI ?? IMPRESSION: ?? No mammographic evidence of malignancy. ?? Stable benign findings. ? ASSESSMENT: ? BI-RADS BI-RADS 2 - Benign Findings ? RECOMMENDATION: ?? Routine annual mammography screening. ? 1 year F/U ? This examination should not preclude the clinical evaluation of a ?? suspicious palpable abnormality. ? This patient's information was entered into a reminder system with a ?? target due date for their next mammogram. ? Dictated By: ?Tico Main MD ? Signed By: ?<Electronically signed by Tico Main MD in OV> ?12/27/23 1137 ? DD/ 0842 ? TD/TT: ? Tree Girdler: ? Procedure Note Donotselenainterpreter, Image - 12/27/2023 [facility] [address] [place] [address] Mammography Report Signed Patient: Isidra Rodrigues#: [id number] : 1970Acct:[id number] Age/Sex: 53 / FADM Date: 12/27/23 Loc: HO.MAMMO Attending Dr: Liliana Kinney MD Ordering Physician: Liliana Kinney MDResults: 2Beni gn Findings Date of Service: 12/27/23Follow Up: 1 Year From Orig inal Mammogram Procedure(s): MM tomosynthesis screening BI Accession Number(s): [id number] cc: Liliana Kinney MD EXAMINATION: MM SCREENING DIGITAL BREAST TOMOSYNTHESIS, BILATERAL CLINICAL INFORMATION: Screening. Asymptomatic. COMPARISON: Mammography: 12/21/2022. 01/15/2023 diagnostic. 01/19/2023 benign stereotactic right breast biopsy. 01/15/2023 bilateral breast ultrasound (simple cysts). TECHNIQUE: Digital breast tomosynthesis is performed in both the craniocaudal and mediolateral oblique views along with computer-aided detection (CAD). Synthesized 2D images are generated from the tomosynthesis. FINDINGS: The breasts are heterogeneously dense, which may obscure small masses (ACR BI-RADS breast composition Category c). Post benign biopsy clip in the approximate 3:00 axis right breast middle one third. Isodense small oval masses in both breasts, known to represent simple cysts on prior ultrasounds. No recurrent or suspicious calcifications present. No developing masses or regions of architectural distortion in either breast. No suspicious skin or axillary abnormality. MM/MM tomosynthesis screening BI IMPRESSION: No mammographic evidence of malignancy. Stable benign findings. ASSESSMENT: BI-RADS BI-RADS 2 - Benign Findings RECOMMENDATION: Routine annual mammography screening. 1 year F/U This examination should not preclude the clinical evaluation of a suspicious palpable abnormality. This patient's information was entered into a reminder system with a target due date for their next mammogram. Dictated By: Tico Main MD Signed By: <Electronically signed by Tico Main MD in OV> 12/27/23 1137 DD/ 0842 TD/TT: Tree Girdler: us Liliana Kinney MD IMG BI PROCEDURES Final Resul t * Cologuard?? colon cancer screening (04/20/2023 3:27 PM EDT) Cologuard Result Negative Negative 04/25/20 10:40 AM EDT [facility] (CLIA #:[id number]) Comment: NEGATIVE TEST RESULT. A negative Cologuard result indicates a low likelihood that a colorectal cancer (CRC) or advanced adenoma (adenomatous polyps with more advanced pre-malignant features) ??is present. The chance that a person with a negative Cologuard test has a colorectal cancer is less than 1 in 1500 (negative predictive value >99.9%) or has an ??advanced adenoma is less than ??5.3% (negative predictive value 94.7%). These data are based on a prospective cross-sectional study of 10,000 individuals at average risk for colorectal cancer who were screened with both Cologuard and colonoscopy. (Elsa Mao et al, N Engl J Med 2014;370(14):1286- 1297) The normal value (reference range) for this assay is negative. COLOGUARD RE-SCREENING RECOMMENDATION: Periodic colorectal cancer screening is an important part of preventive healthcare for asymptomatic individuals at average risk for colorectal cancer. ??Following a negative Cologuard result, the [employer] [employer] Society and U.S. Multi-Society Task Force screening guidelines recommend a Cologuard re-screening interval of 3 years. References: [place] [employer] Guideline for Colorectal Cancer Screening: https://www.cancer.org/cancer/yrcsu-gkprnq-jlnhpb/wqgiwrwkh-jbkgxlmpj-lmzaxzp/ac s-rec ommendations.html.; Pavel CABRERA, Toro POOLE, Sid SCHAEFER, Colorectal Cancer Screening: Recommendations for Physicians and Patients from the U.S. Multi-Society Task Force on Colorectal Cancer Screening , Am J Gastroenterology 2017; 112:4873-2879. TEST DESCRIPTION: Composite algorithmic analysis of stool DNA-biomarkers with hemoglobin immunoassay. ?? Quantitative values of individual biomarkers are not reportable and are not associated with individual biomarker result reference ranges. Cologuard is intended for colorectal cancer screening of adults of either sex, 45 years or older, who are at average-risk for colorectal cancer (CRC). Cologuard has been approved for use by the U.S. FDA. The performance of Cologuard was established in a cross sectional study of average-risk adults aged 50-84. Cologuard performance in patients ages 45 to 49 years was estimated by sub-group analysis of near-age groups. Colonoscopies performed for a positive result may find as the most clinically significant lesion: colorectal cancer [4.0%], advanced adenoma (including sessile serrated polyps greater than or equal to 1cm diameter) [20%] or non- advanced adenoma [31%]; or no colorectal neoplasia [45%]. These estimates are derived from a prospective cross-sectional screening study of 10,000 individuals at average risk for colorectal cancer who were screened with both Cologuard and colonoscopy. (Elsa Munoz al, N Engl J Med 2014;370(14):0769-2645.) Cologuard may produce a false negative or false positive result (no colorectal cancer or precancerous polyp present at colonoscopy follow up). A negative Cologuard test result does not guarantee the absence of CRC or advanced adenoma (pre-cancer). The current Cologuard screening interval is every 3 years. ([place] [employer] and U.S. Multi-Society Task Force). Cologuard performance data in a 10,000 patient pivotal study using colonoscopy as the reference method can be accessed at the following location: www.[employer]/results. Additional description of the Cologuard test process, warnings and precautions can be found at www.cologuard.com. Stool specimen (specimen) 04/20/2023 3:27 PM EDT 04/21/2023 3:12 PM EDT Liliana Kinney MD LAB MOLECULAR DIAGNOSTICS ORD ERABLES Final Result [facility] (CLIA #:[id number]) [address] [place] [address], * Image-Guided Pap with Age-Based Screening??with CT/NG,??Trichomonas (12/05/2022 4:35 PM EDT) Comment [facility] Comment: This order for age-based cervical cancer and STI screening follows ACOG guidelines(PB 168, 140, VYF458). See individual assays for performing site location. Clinical Information: 52 YR WHO NEED CX CA SCREENING [employer] LMP: 11/18/22 [employer] Prev. PAP: NONE GIVEN [employer] Prev. BX: NONE GIVEN [facility] SOURCE: None given [facility] Statement Of Adequacy: [employer] Comment: Satisfactory for evaluation. Endocervical/transformation zone component present. Interpretation/Re sult: Negative for intraepithelial lesion or malignancy. [employer] Infection Shift in vaginal freida suggestive of bacterial vaginosis. [facility] COMMENT: This Pap test has been evaluated with computer assisted technology. [employer] Cardiac Catheterization Technician: [facility] [employer] Comment: JNA, CT(ASCP) CT screening location: [address] ??[address] Review Cardiac Catheterization Technician: [employer] Comment: DCR, CT(ASCP) CT screening location: [address] ??[address] (Always Message) [facility] Comment: EXPLANATORY NOTE: The Pap is a screening test for cervical cancer. It is not a diagnostic test and is subject to false negative and false positive results. It is most reliable when a satisfactory sample, regularly obtained, is submitted with relevant clinical findings and history, and when the Pap result is evaluated along with historic and current clinical information. HPV nRNA E6/E7 Not Detected Not Detected [facility] Comment: Methodology: Bilingual Call Center Representative-Mediated Amplification This assay detects E6/E7 viral messenger RNA (mRNA) from 14 high-risk HPV types (16,18,31,33,35,39,45,51,52,56,58,59,66,68). Cervical sources are required for HPV testing. If a vaginal source from a patient who has had a total hysterectomy with removal of cervix was submitted, please contact the testing laboratory for alternative testing options. For additional information, please refer to [email or web address]/faq/UFK989o0 (This link if provided for information/ educational purposes only.) Chlamydia trachomatis RNA, TMA, Urogenital NOT DETECTED NOT DETECTED [facility] Neisseria gonorrhoeae RNA, TMA, Urogenital NOT DETECTED NOT DETECTED [facility] (Always Message) Que [facility] Comment: The analytical performance characteristics of this assay, when used to test SurePath(TM) specimens have been determined by [employer] The modifications have not been cleared or approved by the FDA. This assay has been validated pursuant to the CLIA regulations and is used for clinical purposes. For additional information, please refer to https://[employer]/faq/FYY419 (This link is being provided for information/ educational purposes only.) Trichomonas vaginalis, QL, TMA, PAP Vial NOT DETECTED NOT DETECTED [facility] Comment: The analytical performance characteristics of this assay have been determined by [employer] The modifications have not been cleared or approved by the FDA. This assay has been validated pursuant to the CLIA regulations and is used for clinical purposes. For additional information, please refer to [email or web address]/ faq/Trichomonastma (This link is being provided for information/ educational purposes only.) Cervix 12/05/2022 4:35 PM EDT 12/06/2022 2:44 AM EDT Liliana Kinney MD LAB CYTOLOGY ORDERABLES Final Result Performing Organization Address [facility] de Phone Number [facility] Kishan [address], [place] [address] [employer] [place] [employer] [address] [place] [address] * Hepatitis C Antibody with Reflex to HCV, RNA, Quantitative, Real-Time PCR (11/13/2022 9:30 AM EDT) Hepatitis C Antibody NON-REACT ELIJAH NON-REACT ELIJAH [employer] [place] [employer] Index 0.04 <1.00 [employer] [place] [employer] Comment: HCV antibody was non-reactive. There is no laboratory evidence of HCV infection. In most cases, no further action is required. However, if recent HCV exposure is suspected, a test for HCV RNA (test code 46083) is suggested. For additional information please refer to http://education.[employer]/faq/CRF07k6 (This link is being provided for informational/ educational purposes only.) Blood Venous blood specimen / Unknown 11/13/2022 9:30 AM EDT 11/13/2022 9:31 AM EDT Result [facility] Liliana Kinney MD LAB BLOOD ORDERABLES Final Re sult Performing Organization Address [facility] Co de Phone Number [facility] [address], [place] [address] [employer] [place] [employer] [address] [place] [address] * HIV-1/2 Antigen and Antibodies, Fourth Generation, with Reflexes (11/13/2022 9:30 AM EDT) Pathologist [facility] HIV Antigen/Antibody, 4th Generation NON-REAC TIVE NON-REAC TIVE [employer] [place] [employer] Comment: HIV-1 antigen and HIV-1/HIV-2 antibodies were not detected. There is no laboratory evidence of HIV infection. PLEASE NOTE: This information has been disclosed to you from records whose confidentiality may be protected by state law. ??If your state requires such protection, then the state law prohibits you from making any further disclosure of the information without the specific written consent of the person to whom it pertains, or as otherwise permitted by law. A general authorization for the release of medical or other information is NOT sufficient for this purpose. ?? For additional information please refer to http://education.[employer]/faq/JQS458 (This link is being provided for informational/ educational purposes only.) The performance of this assay has not been clinically validated in patients less than 2 years old. Blood Venous blood specimen / Unknown 11/13/2022 9:30 AM EDT 11/13/2022 9:31 AM EDT us Liliana Kinney MD LAB BLOOD ORDERABLES Final Re sult [facility] [address], [place] [address] [employer] 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
[2024-12-08 15:20] LABS: Cholesterol 163 mg/dL (<200); HDL Cholesterol 54 mg/dL (>40); LDL Cholesterol Calculated 75 mg/dL (<100); Triglycerides 171 mg/dL (<150)
== END 2024-12-08 09:12 | disposition home or self-care (01) ==
LOC: HO.CHCLDS 09:11
PROVIDERS: Visit Provider Family Medicine
DX: E78.1 Pure hyperglyceridemia (principal)
CPT/HCPCS: 36415; 80061

== ENCOUNTER 2025-01-01 09:44 | Outpatient (REF) | payer MEDICAID, SELFPAY ==
--- OUTSIDE RECORDS SUMMARY | 2025-01-01 10:03 | XMS_ITS | Clinical Summary ---
Author Organization [facility] ity Address [address] [place] [address] Care Team Providers Care Gate Watchman Name Role Phone Liliana Kinney MD Primary Care Provider [phone] Social History Tobacco Use Types Packs/Day Years Used Date Smoking Tobacco: Never Smokeless Tobacco: Never Alcohol Use Standard Drinks/Week Comments Never 0 (1 standard drink = 0.6 oz pur e alcohol) Comments Unknown Sex and Gender Information Value Date Recorded Sex Assigned at Not on file Legal Sex Female 7:06 AM EST Gender Identity Not on file Sexual Orientation Not on file Obstetrics History Last Filed Vital Signs Vital Sign Reading Time Taken Comments Blood Pressure - - Pulse - - Temperature - - Respiratory Rate - - Oxygen Saturation - - Inhaled Oxygen Concentration - - Weight 73.9 kg (163 lb) 02/20/2024 1:21 PM EDT Height 157.5 cm (5' 2 ) 02/20/2024 1:21 PM EDT Body Mass Index 29.81 02/20/2024 1:21 PM EDT Plan of Treatment Health Maintenance Due Date Last Done Comments Breast Cancer Screening 1970 DTaP,Tdap,and Td Vaccines (1 - Tdap) 10/17/1990 Hepatitis B Vaccines (1 of 3 - 19+ 3-dose series) 10/17/1990 Cervical Cancer Screening: P ap Smear 10/17/1992 Pneumococcal Vaccine: 50+ Ye ars (1 of 1 - PCV) 10/17/2021 Zoster Vaccines (1 of 2) 10/17/2021 Cholesterol Screening (Lipid Panel) 07/09/2022 Colorectal Cancer Screening: Colonoscopy 07/09/2022 Depression Screening 07/09/2022 HIV Screening 07/09/2022 Hepatitis C Screening 07/09/2022 Social Influencers of Health Screening 07/09/2022 Hypertension/CHF/CAD Annual BMP Blood Test 07/22/2022 COVID-19 Vaccine ( - 2023-2 5 season) 2024 Influenza Vaccine (Season Ended) 2025 HIB Vaccines Aged Out No longer eligi [...] on patient's age to complete this topic MMR Vaccines Aged Out No longer eligi ble based on patient's age to complete this topic Meningococcal ACWY Vaccine Aged Out N o longer eligible based on patient's age to complete this topic Meningococcal B Vaccine Aged Out No l onger eligible based on patient's age to complete this topic Pneumococcal Vaccine: Pediat rics (0 to 5 Years) and At-Risk Patients (6 to 64 Years) Aged Out No longer eligible b ased on patient's age to complete this topic RSV Immunization Patients Un vernon 20 months Aged Out No longer eligible b ased on patient's age to complete this topic Varicella Vaccines Aged Out No longer eligible based on patient's age to complete this topic Care Teams Gate Watchman Relationship Specialty Start Date End Date Liliana Kinney MD [address] [place] [address] PCP - General 10/29/23
== END 2025-01-01 09:45 | disposition home or self-care (01) ==
LOC: HO.MAMMO 09:44
PROVIDERS: Visit Provider Family Medicine
DX: Z12.31 Encounter for screening mammogram for malignant neoplasm of breast (principal)
CPT/HCPCS: 77063; 77067

== ENCOUNTER → 2025-01-01 10:15 | Outpatient (BNV) | payer MEDICAID, SELFPAY | PROVIDERS: Visit Provider Internal Medicine | DX: Z12.31 Encounter for screening mammogram for malignant neoplasm of breast (principal) | CPT/HCPCS: 77063; 77067 ==